=== PATIENT | female | born 1965 | race African-American/Black ===

== ENCOUNTER 2016-07-13 11:29 | Emergency (ER) | payer OTHER ==
[~2016-07-13] VITALS: Ht 157.5 cm; Wt 90.0 kg
[2016-07-13 11:37] VITALS: BP 156/96; PULSE 84; RESP 16; TEMP 97.7; O2SAT 100
--- NOTE | 2016-07-13 11:51 | PD ---
HPI Chief Complaint: Flank/Kidney Pain Time Seen by Provider: 11:44 Travel History International Travel<30 days: No Contact w/Intl Traveler<30days: No Traveled to known affect area: No History of Present Illness HPI This is a 50-year-old female who presents to the emergency department with 3 days of left-sided flank pain, constant, severe, worsening today, keeping her up all night, sharp, radiating into her left leg and groin area. She says this feels similar to when she's had kidney stones in the past. She says she threw up once this morning. She denies any fevers or chills. She denies any hematuria. She denies any diarrhea or constipation. She has had a hysterectomy in the past. PFSH Past Medical History Hx Anticoagulant Therapy: No Cardiovascular Problems: Yes (HTN) Diabetes: No ?: Not Social History Alcohol Use: No Tobacco Use: No Substance Use: No Allergies-Medications (Allergen,Severity, Reaction): Coded Allergies: No Known Allergies (Unverified , 07/13/16) Reported Meds & Prescriptions Reported Meds & Active Scripts Active Active Prescriptions or Reported Medications Unobtainable Review of Systems Except as stated in HPI: all other systems reviewed are Neg Physical Exam Narrative GENERAL: Uncomfortable appearing, writhing in pain SKIN: Warm and dry. HEAD: Atraumatic. Normocephalic. EYES: Pupils equal and round. No injection or drainage. ENT: Moist mucous membranes NECK: Trachea midline. CARDIOVASCULAR: Regular rate and rhythm. No murmur appreciated. RESPIRATORY: Clear to auscultation. Breath sounds equal bilaterally. GASTROINTESTINAL: Abdomen soft, non-tender, nondistended. : Left CVA tenderness. MUSCULOSKELETAL: No obvious deformities. NEUROLOGICAL: Awake and alert. No obvious cranial nerve deficits. Moving all extremities. PSYCHIATRIC: Appropriate mood and affect; insight and judgment normal. Data Data Last Documented VS Vital Signs Date Time Temp Pulse Resp B/P Pulse Ox O2 Delivery O2 Flow Rate FiO2 07/13/16 12:22 16 07/13/16 11:37 97.7 84 156/96 100 Orders Complete Blood Count With Diff (07/13/16 11:48) Comprehensive Metabolic Panel (07/13/16 11:48) Urinalysis - C+S If Indicated (07/13/16 11:48) ^ Insert Iv (07/13/16 11:48) Ketorolac Inj (Toradol Inj) (07/13/16 12:00) Sodium Chlor 0.9% 1000 Ml Inj (Ns 1000 M (07/13/16 12:00) Ondansetron Inj (Zofran Inj) (07/13/16 12:00) Ct Abd/Pel W/O Iv Contrast (07/13/16 ) Hydromorphone Pf Inj (Dilaudid Pf Inj) (07/13/16 12:00) Labs Laboratory Tests Test 07/13/16 12:00 White Blood Count 10.4 TH/MM3 Red Blood Count 5.40 MIL/MM3 Hemoglobin 14.8 GM/DL Hematocrit 44.8 % Mean Corpuscular Volume 83.1 FL Mean Corpuscular Hemoglobin 27.5 PG Mean Corpuscular Hemoglobin 33.1 % Concent Red Cell Distribution Width 13.8 % Platelet Count 263 TH/MM3 Mean Platelet Volume 10.6 FL Neutrophils (%) (Auto) 52.2 % Lymphocytes (%) (Auto) 40.2 % Monocytes (%) (Auto) 5.7 % Eosinophils (%) (Auto) 1.2 % Basophils (%) (Auto) 0.7 % Neutrophils # (Auto) 5.4 TH/MM3 Lymphocytes # (Auto) 4.2 TH/MM3 Monocytes # (Auto) 0.6 TH/MM3 Eosinophils # (Auto) 0.1 TH/MM3 Basophils # (Auto) 0.1 TH/MM3 CBC Comment DIFF FINAL Differential Comment Sodium Level 141 MEQ/L Potassium Level 3.0 MEQ/L Chloride Level 102 MEQ/L Carbon Dioxide Level 28.6 MEQ/L Anion Gap 10 MEQ/L Blood Urea Nitrogen 11 MG/DL Creatinine 1.00 MG/DL Estimat Glomerular Filtration 71 ML/MIN Rate Random Glucose 139 MG/DL Calcium Level 8.7 MG/DL Total Bilirubin 0.4 MG/DL Aspartate Amino Transf 23 U/L (AST/SGOT) Alanine Aminotransferase 42 U/L (ALT/SGPT) Alkaline Phosphatase 109 U/L Total Protein 8.0 GM/DL Albumin 3.6 GM/DL MDM Medical Decision Making Medical Screen Exam Complete: Yes Emergency Medical Condition: Yes Interpretation(s) No leukocytosis Electrolytes are reassuring CT abdomen and pelvis: No stone Differential Diagnosis Nephrolithiasis, pyelonephritis, herniated disc, sciatica Narrative Course This is a 50-year-old female who presents to the emergency department with left sided back pain. She was fairly convinced it's a kidney stone. She is placed in a monitored an IV was established. She was given IV pain medication, antiemetics and IV fluids. Labs are all reassuring. CT abdomen and pelvis is negative for stone. Given the description of her symptoms I suspect she has sciatica. I encouraged her to continue to take anti-inflammatories, use a heating pad as needed, walk and follow-up with her primary care physician if her symptoms are not improving in 1 week. Diagnosis Primary Impression: Sciatica Qualified Code: M54.32 - Sciatica of left side Patient Instructions: General Instructions Additional Instructions: If you develop weakness of your legs, difficulty walking, numbness of your legs or your genital or rectal area, loss of your bowel or bladder, or difficulty urinating return to the emergency department immediately. Followup with your primary care physician in one week if your symptoms have not improved. Med/Other Pt SpecificInfo: Prescription(s) given Scripts Naproxen 500 Mg Qar990 Mg PO BID PRN (PAIN SCALE 4 TO 10) #20 TAB Prov:Jacque Hickman MD 07/13/16 Disposition: 01 DISCHARGE HOME Condition: Stable Jacque Hickman MD Jul 13, 2016 11:51
[2016-07-13] MEDS ORDERED: SODIUM CHLOR 0.9% 1000 ML INJ 1,000 ML IV ONE (12:00)
[2016-07-13] MEDS ORDERED: ONDANSETRON HCL 4 MG/2 ML VIAL IV PUSH ONE (12:00)
[2016-07-13] MEDS ORDERED: KETOROLAC TROMETHAMINE 30 MG/ML (IVP) VIAL IV PUSH ONE (12:00)
[2016-07-13] MEDS ORDERED: HYDROmorphone HCL PF 1 MG/ML VIAL IV PUSH ONE (12:00)
[2016-07-13 12:23] LABS: CHLORIDE 102 MEQ/L (98-107); SODIUM (NA) 141 MEQ/L (136-145)
[2016-07-13 12:25] LABS: AUTOMATED NEUTROPHIL # 5.4 TH/MM3 (1.8-7.7); BASOPHIL # 0.1 TH/MM3 (0-0.2); BASOPHIL % 0.7 % (0.0-2.0); EOSINOPHIL # 0.1 TH/MM3 (0-0.4); EOSINOPHIL % 1.2 % (0.0-4.0); HEMATOCRIT 44.8 % (35.0-46.0); HEMO FLAGS DIFF FINAL; LYMPH % 40.2 % (9.0-44.0); LYMPHOCYTE # 4.2 TH/MM3 (1.0-4.8); MEAN CELL VOLUME 83.1 FL (80.0-100.0); MEAN CORPUSCULAR HEMOGLOBIN 27.5 PG (27.0-34.0); MEAN CORPUSCULAR HGB CONC 33.1 % (32.0-36.0); MONO % 5.7 % (0.0-8.0); NEUT % 52.2 % (16.0-70.0); PLATELET COUNT 263 TH/MM3 (150-450); RED CELL DISTRIBUTION WIDTH 13.8 % (11.6-17.2); WHITE BLOOD COUNT 10.4 TH/MM3 (4.0-11.0)
[2016-07-13 12:27] LABS: ANION GAP 10 MEQ/L (5-15); BICARBONATE 28.6 MEQ/L (21.0-32.0); BLOOD UREA NITROGEN 11 MG/DL (7-18)
[2016-07-13 12:30] LABS: ALT (GPT) 42 U/L (10-53); AST (GOT) 23 U/L (15-37); GLOMERULAR FILTRATION RATE 71 ML/MIN (>89)
[2016-07-13 12:31] LABS: TOTAL BILIRUBIN ADULT 0.4 MG/DL (0.2-1.0)
[2016-07-13 12:33] LABS: ALKALINE PHOSPHATASE 109 U/L (45-117)
--- NOTE | 2016-07-13 12:55 | RADHPO ---
EXAM DATE/TIME: 07/13/2016 12:37 [facility] COMPARISON: No previous studies available for comparison. INDICATIONS : Left flank pain for three days. ORAL CONTRAST: No oral contrast ingested. RADIATION DOSE: 19.58 CTDIvol (mGy) MEDICAL HISTORY : Renal calculi. Hypertension. SURGICAL HISTORY : Hysterectomy. nerve stimulator ENCOUNTER: Initial ACUITY: 3 days PAIN SCALE: 7/10 LOCATION: Left flank TECHNIQUE: Volumetric scanning of the abdomen and pelvis was performed. Using automated exposure control and ad justment of the mA and/or kV according to patient size, radiation dose was kept as low as reasonably achievable to obtain optimal diagnostic quality images. FINDINGS: LOWER LUNGS: The visualized lower lungs are clear. LIVER: Decreased attenuation without lesion. There is no dilation of the biliary tree. No calcified gallst ones. SPLEEN: Normal size without lesion. PANCREAS: Within normal limits. KIDNEYS: Normal in size and shape. There is no mass, stone, or hydronephrosis. Subcentimeter fatty lesion low er pole left kidney. ADRENAL GLANDS: Within normal limits. VASCULAR: There is no aortic aneurysm. BOWEL/MESENTERY: The stomach, small bowel, and colon demonstrate no acute abnormality. There is no free intraperitone al air or fluid. ABDOMINAL WALL: Within normal limits. RETROPERITONEUM: There is no lymphadenopathy. BLADDER: No wall thickening or mass. REPRODUCTIVE: Within normal limits. INGUINAL: There is no lymphadenopathy or hernia. MUSCULOSKELETAL: Neural stimulator device in the left buttock with tip traversing the right sacrum CONCLUSION: 1. Hepatic steatosis. 2. No renal calculi or hydronephrosis. 3. Benign tiny angiomyolipoma of left kidney 4. Left-sided neurostimulator device. Roldan Jo MD on July 13, 2016 at 12:50 Board Certified Radiologist. This report was verified electronically.
[2016-07-13] MEDS ORDERED: NAPR500T PO (13:07)
[2016-07-13 13:19] VITALS: BP 112/62; PULSE 68; RESP 16; O2SAT 96
[2016-07-13 14:47] VITALS: BP 122/64
== END 2016-07-13 14:50 | disposition home or self-care (01) ==
LOC: PHED 11:29
DX: M54.32 Sciatica, left side (principal); I10 Essential (primary) hypertension; Z87.442 Personal history of urinary calculi
CPT/HCPCS: 74176; 80053; 85025; 96361; 96374; 96375; 99284; J1170; J1885; J2405; J7030